=== PATIENT | male | born 2000 | race Caucasian/White ===

== ENCOUNTER 2019-02-21 16:04 | Emergency (ER) | payer BC ==
[~2019-02-21] VITALS: Ht 175.3 cm; Wt 68.0 kg
--- NOTE | 2019-02-21 16:05 | NUR ---
Patient is AOx4, speaking in complete sentences, speech is clear. Able to follow /comprehend directions. Gait is antalgic. No cardiovascular distress noted. Rate/rhythm regular. No CP. No respiratory distress noted. Respirations even , unlabored, symmetrical chest rise. No adventitious sounds noted. Chief complaint: LEFT KNEE PAIN FROM WRESTLING YESTERDAY. DENIES SWELLING, +TENDERNESS, DENIES BRUISING NOR OPEN WOUNDS. DENIES CREPITUS, denies paresthesias nor radiculopathies on LE. Pt has taken advil with some relief. Denies Fever/Chills. No recent travel. No pertinent medical history/NKDA. -ETOH/ -recreational drug use/ nonsmoker. LBM- yesterday. Continent of bowel and bladder function. SAFETY Patient in bed, bed in lowest position. Siderails up x 2. Call light within reach. Will continue to monitor accordingly
[2019-02-21] MEDS ORDERED: SERT50TA PO (16:25)
--- NOTE | 2019-02-21 17:04 | NUR ---
Pt placed on knee immobilizer for LEFT KNEE BY PATITO VILLAFANA +SKIN DRY WARM, +PEDAL PULSES, DENIES RADICULOPATHIES NOR PARESTHESIAS, PAIN 2/10 TOLERATED. GAIT TRAINING DONE FOR CRUTCHES. ABLE TO DEMONSTRATE
--- NOTE | 2019-02-21 17:31 | NUR ---
Patient discharged to home in stable conditon. Written and verbal after care instructions given. Patient verbalizes understanding of instructions. ABLE TO AMBULATE WITH CRUTCHES. Addendum: 02/21/19 at 1735 by MAIKOL CD/IMAGERY GIVEN TO PT.
[2019-02-21 17:32] VITALS: BP 136/65
== END 2019-02-21 17:44 | disposition home or self-care (01) ==
LOC: ER 16:07
DX: S72.432A Displaced fracture of medial condyle of left femur, initial encounter for closed fracture (principal); M23.92 Unspecified internal derangement of left knee; Z88.0 Allergy status to penicillin; Z79.899 Other long term (current) drug therapy; X50.1XXA Overexertion from prolonged static or awkward postures, initial encounter; Y93.89 Activity, other specified; Y92.89 Other specified places as the place of occurrence of the external cause; Y99.8 Other external cause status
CPT/HCPCS: 73700; A4663